=== PATIENT | male | born 1985 | race African-American/Black ===

== ENCOUNTER 2024-07-14 16:33 | Emergency (ER) | payer BC ==
--- NOTE | 2024-07-14 19:17 | RAD REPORT ---
EXAM DESCRIPTION: Margot Single View07/14/2024 5:31 pm CLINICAL HISTORY: positive tb skin test, no active resp s/s COMPARISON: No comparisons TECHNIQUE: Portable AP view of the chest. FINDINGS: The lungs are clear. No pneumothorax or effusion. The cardiomediastinal contours are unre markable. IMPRESSION: No acute cardiopulmonary process.
--- NOTE | 2024-07-14 19:20 | ER ---
Nurse's Notes [facility] Name: Sree Ayala Age: 39 yrs Sex: Male : 1985 Arrival Date: 07/14/2024 Time: 16:33 Bed DX1 Private MD: Diagnosis: Encounter for screening for respiratory tuberculosis Presentation: 07/14 17:07 Chief complaint:. Chief complaint: Patient states: STATES NEEDS TO HAVE A CHEST XRAY db BECAUSE HAD A POSITIVE TB TEST. SENT BY JOB FOR XRAY. HAD TB SHOT. Coronavirus screen: Client denies travel out of the [place] in the last 14 days. At this time, the client does not indicate any symptoms associated with coronavirus-19. Ebola Screen: Patient negative for fever greater than or equal to 101.5 degrees Fahrenheit, and additional compatible Ebola Virus Disease symptoms Patient denies exposure to infectious person. Patient denies travel to an Ebola-affected area in the 21 days before illness onset. No symptoms or risks identified at this time. Initial Sepsis Screen: Does the patient meet any 2 criteria? No. Patient's initial sepsis screen is negative. Does the patient have a suspected source of infection? No. Patient's initial sepsis screen is negative. Risk Assessment: Do you want to hurt yourself or someone else? Patient reports no desire to harm self or others. Onset of symptoms was July 14, 2024. 17:07 Method Of Arrival: Ambulatory db 17:07 Acuity: DARREN 4 db Triage Assessment: 17:10 General: Appears in no apparent distress. comfortable, Behavior is calm, cooperative. db Pain: Denies pain. Neuro: Level of Consciousness is awake, alert, obeys commands, Oriented to person, place, time, situation. Respiratory: Airway is patent Respiratory effort is even, unlabored, Respiratory pattern is regular, symmetrical. Historical: - Allergies: 17:10 No Known Allergies; db - PMHx: 17:10 None; db - Immunization history:: Adult Immunizations unknown. - Infectious Disease History:: Denies. - Social history:: Smoking status: Patient denies any tobacco usage or history of. Screenin:34 [facility] ED Fall Risk Assessment (Adult) History of falling in the last 3 months, vc1 including since admission No falls in past 3 months (0 pts) Confusion or Disorientation No (0 pts) Intoxicated or Sedated No (0 pts) Impaired Gait No (0 pts) Mobility Assist Device Used No (0 pt) Altered Elimination No (0 pt) Score/Fall Risk Level 0 - 2 = Low Risk Oriented to surroundings, Maintained a safe environment, Educated pt \T\ family on fall prevention, incl call for assistance when getting out of bed. Abuse screen: Denies threats or abuse. Nutritional screening: No deficits noted. Tuberculosis screening: No symptoms or risk factors identified. Vital Signs: 17:07 BP 140 / 86; Pulse 90; Resp 16; Temp 98.3; Pulse Ox 98% ; Weight 100 kg; Height 6 ft. 0 db in. ; 17:07 Body Mass Index 29.90 (100.00 kg, 182.88 cm) db ED Course: 16:47 Patient arrived in ED. mg5 16:47 Rhett Grubbs MD is Attending Physician. ec2 17:10 Triage completed. db 17:10 Arm band placed on Patient placed in waiting room. db 17:33 CXR XRAY In Process Unspecified. EDMS 19:36 Provided Education on: f/u with PCP for release. vc1 19:36 No provider procedures requiring assistance completed. Patient did not have IV access vc1 during this emergency room visit. Administered Medications: No medications were administered Medication: 19:36 VIS not applicable for this client. vc1 Outcome: 19:20 Discharge ordered by . ec2 19:36 Discharged to home ambulatory, vc1 19:36 Condition: good 19:36 Discharge instructions given to patient, Instructed on discharge instructions, follow up and referral plans. Demonstrated understanding of instructions, follow-up care, 19:37 Patient left the ED. vc1 Signatures: Dispatcher [facility] Nicki Molina RN RN vc1 Yuli Stanley RN RN Aleida Walls mg5 Rhett Grubbs MD MD ec2 Corrections: (The following items were deleted from the chart) 17:20 17:07 BP 140 / 86; Pulse 90bpm; Resp 98bpm; Pulse Ox 98%; Temp 98.3F; 100 kg; Height 6 db ft.; BMI: 29.9; db
--- NOTE | 2024-07-14 19:20 | EDPHYS ---
Physician Documentation [facility] Name: Sree Ayala Age: 39 yrs Sex: Male : 1985 Arrival Date: 07/14/2024 Time: 16:33 Bed DX1 Private MD: ED Physician Rhett Grubbs HPI: 07/14 17:25 This 39 yrs old Male presents to ER via Ambulatory with complaints of Chest Xray. ec2 17:25 Patient arrives today for evaluation due to concern for a positive TB test. Patient ec2 reports that he had a positive TB test, states he has previous TB vaccine, states that he had a tuberculin skin test. Patient reports no cough and cold symptoms, denies any fevers, denies weight loss, denies night sweats.. Historical: - Allergies: 17:10 No Known Allergies; db - PMHx: 17:10 None; db - Immunization history:: Adult Immunizations unknown. - Infectious Disease History:: Denies. - Social history:: Smoking status: Patient denies any tobacco usage or history of. ROS: 17:25 Constitutional: as per hpi ec2 Exam: 17:25 Constitutional: GEN: NAD Head: atraumatic Eyes: EOMI Ears: External ears are ec2 normal. CV: regular rate LUNGS: no respiratory distress ABD: non-distended SKIN: no evidence of rashes MSK: no evidence of trauma Vital Signs: 17:07 BP 140 / 86; Pulse 90; Resp 16; Temp 98.3; Pulse Ox 98% ; Weight 100 kg; Height 6 ft. 0 db in. ; 17:07 Body Mass Index 29.90 (100.00 kg, 182.88 cm) db MDM: 17:11 Patient medically screened. ec2 17:25 Data reviewed: vital signs. ED course: Patient arrives today for evaluation of abnormal ec2 TB test without active symptoms. Examination markable well-appearing nontoxic vigorous otherwise in no acute distress. Will obtain radiograph, patient ultimately needs to follow-up outpatient with his primary care doctor.. 19:19 ED course: Chest x-ray shows no acute intrathoracic process. Will discharge home. ec2 Return precautions given. Instructed follow-up PCP.. 07/14 17:12 Order name: CXR XRAY; Complete Time: 19:19 ec2 Administered Medications: No medications were administered Disposition Summary: 07/14/24 19:20 Discharge Ordered Condition: Stable ec2 Diagnosis - Encounter for screening for respiratory tuberculosis ec2 Followup: ec2 - With: Private Physician - When: - Reason: Re-evaluation by your physician Discharge Instructions: - Discharge Summary Sheet ec2 - Tuberculosis, [id number] ec2 Forms: - Medication Reconciliation Form ec2 - Antibiotic Education ec2 - Prescription Opioid Use ec2 - Patient Portal Instructions ec2 - Leadership Thank You Letter ec2 Signatures: Dispatcher [employer] Yuli De Leon, JASMEET RN Rhett Villagomez MD MD ec2
[2024-07-14 20:04] VITALS: BP 140/86; TEMP 98.3; O2SAT 98
== END 2024-07-14 19:37 | disposition home or self-care (01) ==
LOC: ER 16:33
DX: Z11.1 Encounter for screening for respiratory tuberculosis (principal)
CPT/HCPCS: 71045